=== PATIENT | male | born 1965 | race Caucasian/White ===

== ENCOUNTER 2024-03-26 12:20 | Inpatient (IN) | payer BC, SELFPAY ==
[2024-03-26] VITALS (10 sets, daily range): BP systolic 138–159; BP diastolic 84–109
[2024-03-26 11:17] LABS: % Eosinophils 1.8 % (0-6); % Immature Granulocytes 0.4 % (0-0.5); % Lymphocytes 34.9 % (20.5-51.1); % Monocytes 10.6 % (1.7-9.3); % Neutrophils 51.3 % (42.2-75.2); Absolute Basophils 0.1 10^3/uL (0-0.2); Absolute Eosinophils 0.1 10^3/uL (0-0.7); Absolute Lymphocytes 2.4 10^3/uL (1.2-3.4); Absolute Monocytes 0.7 10^3/uL (0.1-0.6); Absolute Neutrophils 3.5 10^3/uL (1.4-6.5); Hematocrit 43.3 % (39.0-52.0); Hemoglobin 15.5 g/dL (13.0-18.0); Mean Corp Hgb Conc. 35.8 g/dL (33.0-37.0); Mean Corpuscular Hgb 30.7 pg (27.0-31.0); Mean Corpuscular Volume 85.7 fL (80.0-94.0); Mean Platelet Volume 10.1 fL (7.4-10.4); Nucleated Red Blood Cells % 0 % (-); Platelet Count 217 10^3/uL (130-400); Red Blood Cell Count 5.05 10^6/uL (4.70-6.10); Red Cell Dist. Width 12.2 % (11.5-14.5); White Blood Cell Count 6.8 10^3/uL (4.8-10.8)
--- NOTE | 2024-03-26 11:20 | ED.GENMED ---
History of Present Illness
General
Chief Complaint: Chest Pain
Time Seen by Provider: 03/26/24 11:17
History of Present Illness
History of Present Illness:
Patient is a 58-year-old male with history of hypertension presenting to the emergency department with chest pain. Patient states that he was running outside when shortly after he started he developed midsternal chest pain. He stopped running. He
is still having midsternal chest pain that is a 3 out of 10. He did get slightly nauseous with it however that has since subsided. No diaphoresis. The pain does not radiate to his back. No leg swelling hemoptysis or recent travel or history of
blood clots. He does have family history of MIs. He has never seen a pick up operator before. Never had a stress test. Denies smoking. No history of high cholesterol or diabetes. Has never had pain like this before.
Phy Exam
Physical Exam
Physical Exam:
GENERAL: in no acute distress
HEENT: normocephalic, extraocular movements intact, moist oral mucosa
NECK: normal inspection
RESPIRATORY: no respiratory distress, clear to auscultation bilaterally
CARDIOVASCULAR: regular rate and rhythm
ABDOMEN/: soft, non-distended, non-tender to palpation, no rebound or guarding
EXTREMITIES: non-tender, no edema/swelling
NEUROLOGIC: awake and alert, moves all extremities
SKIN: warm
Scores
Heart Score for Chest Pain Patients
STEMI patient?: Yes
Course
Orders/Labs/Results
Orders:
Orders
03/26/24 10:57
ECG [Electrocardiogram (*1)] Urgent
Reason for Study: Chest Pain
EKG- Treatment ONCE
03/26/24 11:03
Cardiac Monitoring- Treatment ONCE
IV Insert/Care/Rem.- Treatment PRN
O2 Therapy [RESP] Urgent
Titrate/Wean O2 to maintain O2 sat greater than (%): 90
Special Instructions: Maintain sats >/=90%
Pulse Ox/spot Check [RESP] Urgent
Quantity: 1
Special Instructions: ON ROOM AIR
03/26/24 11:08
Complete Blood Count/With Diff Urgent
Comprehensive Metabolic Panel Urgent
Troponin I Urgent
03/26/24 11:12
Ticagrelor [Brilinta] 180 mg .ROUTE .STK-MED ONE
03/26/24 11:16
PTT Urgent
Abnormal Lab Results
03/26/24
11:08
Absolute Monos (auto) 0.7 H 10^3/uL
(0.1-0.6)
Monocytes % 10.6 H %
(1.7-9.3)
03/26/24 11:08
Vital Signs
Initial and Last Documented VS:
Initial Vital Signs
Temp Pulse Resp BP Pulse Ox
97.6 F 62 18 156/99 99
03/26/24 11:01 03/26/24 11:01 03/26/24 11:01 03/26/24 11:01 03/26/24 11:01
Last Documented Vital Signs
Temp Pulse Resp BP Pulse Ox
97.6 F 62 18 156/99 99
03/26/24 11:01 03/26/24 11:01 03/26/24 11:01 03/26/24 11:01 03/26/24 11:01
MDM/Problems Addressed
Differential Diagnosis Includes:
58-year-old male with history of hypertension presenting to the emergency department with chest pain that started while he was running. Story is convincing for ACS. Consider other causes such as dissection or PE though less likely. His EKG from
triage per my interpretation does have ST elevations in the anterior lead with some subtle depressions inferiorly. STEMI alert was called. I did discuss the case with interventional cardiology who evaluated patient at bedside. He will be taken up
to the [facility]. Patient was given aspirin Brilinta and heparin. He was transferred up in stable condition.
*Critical Care Note
Total Time (30-74mins, 75-104mins- exclusive of procedures): 20
comment:
Critical care statement: A total of 20 minutes of critical care time was provided for this patient. This includes management of unstable vital signs, evaluation of the patient at bedside, reviewing the patient's pertinent medical records, ordering
and reviewing studies, arranging urgent treatment with development of a management plan, evaluating patient's response to treatment, frequent reassessment, and discussion with consultants. This time was separate from time utilized to perform the
aforementioned documented procedures.
ED Attending Note
-
Portions of this chart may have been created with voice recognition software.� Occasional wrong word or��sound alike� substitutions may have occurred due to the inherent limitations of voice recognition software.
Discharge Plan
Departure
Patient Disposition: RECRUITMENT MANAGER
Date of Disposition: 03/26/24
Time of Disposition: 11:20
Presentation/result/management discussed w/ accepting MD/DO: cardiology
Discharge Problem:
ST elevation (STEMI) myocardial infarction
Interventions
Interventions:
*Risk Screen - Suicide Last Done: 03/26/24 11:01
*General Assessment Last Done: 03/26/24 11:01
*Neglect/Abuse Screening Last Done: 03/26/24 11:01
Discharge Date and Time
Print Language: BELARUSIAN
[2024-03-26 11:34] LABS: ALT (SGPT) 28 U/L (0-50); AST (SGOT) 29 U/L (17-59); Albumin 4.8 g/dl (3.5-5.0); Alkaline Phosphatase 69 U/L (38-126); Blood Urea Nitrogen 22 mg/dl (9-20); Calcium 9.8 mg/dl (8.4-10.2); Carbon Dioxide 30 mmol/L (22-30); Chloride 100 mmol/L (98-107); Glucose 138 mg/dl (70-99); Potassium 4.4 mmol/L (3.5-5.1); Sodium 140 mmol/L (135-145); Total Protein 7.6 g/dl (6.3-8.2); eGFR > 60.00
[2024-03-26 11:46] LABS: Troponin I 0.013 ng/ml
[2024-03-26 11:48] LABS: ACT-LR - POC 332 Seconds (116-155)
[2024-03-26 12:03] LABS: ACT-LR - POC 313 Seconds (116-155)
--- NOTE | 2024-03-26 12:27 | HPS.HSE ---
Family Physician
-
Family Physician: Nic Antoine
Chief Complaint
-
Chest Pain.
History of Present Illness
58 y/o male with a history of hypertension presented with 1.5 hours of substernal chest pain which developed while he was out jogging. He denies prior chest pain or shortness in breath. He presented to ER where EKG showed anterior ST
elevations. chemical laboratory tester was activated and he was brought in for emergent coronary angiography.
Coronary angiography revealed an acute occlusion of the mLAD with luminal irregularities elsewhere. He underwent ad hoc PCI of the mLAD lesion (Medtronic [place] 3.0 x 26 JEREMY, post dilated with a 3.0 NC balloon throughout and a 3.5 x 8 NCB in
the proximal margin) with relief of stenosis and confucianism of FRANCIA III flow.
Medical History
Past Medical History
Past Medical History: Reports HTN
Past Surgical History: Reports None
Social History
Unable to obtain full social history at this time due to: Acuity
Tobacco: Non-smoker
Personal:
Living: With Family
Family History
Family History: Unable to Obtain
Allergies / Home Medications
Allergies reflects when Allergies were last updated in [facility].
Home Medications with original date entered in [facility]
Allergy/Medication List:
Home Medication:
ACEI - he is not sure which.
Allergies:
NKDA
Review of Systems
-
History Source: Patient
Constitutional: Reports No Symptoms
EENT: Reports No Symptoms
Respiratory: Reports See HPI
Cardiac: Reports See HPI and Chest Pain
Abdomen/GI: Reports No Symptoms
: Reports No Symptoms
Physical Exam
Vital Signs
Vital Signs
Temp Pulse Resp BP Pulse Ox
36.5 C 62 16 156/99 95
03/26/24 12:26 03/26/24 11:01 03/26/24 12:26 03/26/24 11:01 03/26/24 12:26
Physical Exam
General: Well Developed, Well Nourished, Conversant and Good Appetite
HEENT: NormoCephalic, Anicteric, Moist mucous membranes, Atraumatic, Good Dentition, PERRLA, Hypericum Conjunctivae, No Ptosis, Nose Appears Normal and Ears Appear Normal
Respiratory: Clear and Non Labored Respirations
Cardiac: S1/S2 and Regular Rhythm
Breast: Deferred by me
GI: Soft, Non Tender, Non Distended and Normal Bowel Sounds
Rectal: Deferred by Provider
Genito-urinary: Deferred by me
Musculoskeletal: No Clubbing, No Cyanosis and No Edema
Skin: Warm and Dry
Neuro: AO x 3, No Motor Deficits, Nonfocal/grossly intact and Cranial Nerves Intact
Hematologic/Lymphatic: No Lymphadenopathy
Psych: Calm and Intact Judgment/Insight
Laboratory Results
-
03/26/24 11:08
03/26/24 11:08
Laboratory Results
APTT 26.0 Sec (23.4-35.0) 03/26/24 11:16
Total Bilirubin 1.0 mg/dl (0.2-1.3) 03/26/24 11:08
AST 29 U/L (17-59) 03/26/24 11:08
ALT 28 U/L (0-50) 03/26/24 11:08
Alkaline Phosphatase 69 U/L (38-126) 03/26/24 11:08
Troponin I 0.013 ng/ml 03/26/24 11:08
Data Reviewed
-
Medical Tests (Nuc Med, Echo, EKG etc): Image Personally Visualized and interpreted, Report Reviewed by me and Discussed with Physician
Lab Data: Labs Reviewed by me, Discussed with Physician and Discussed with Nurse
Impression/Plan
-
Impression/Plan: 58 y/o male with HTN admitted with anterior STEMI, s/p PCI to mLAD.
#CAD/STEMI
-Acute, resolved.
-S/P PCI to mLAD (Medtronic [place] 3.0 x 26 JEREMY, post dilated with a 3.0 NCB throughout, 3.5 NCB in the proximal margin) with reduction in stenosis to 0%, restoring FRANCIA III flow.
-DAPT with aspirin and ticagrelor for at least 12 months, followed by aspirin indefinitely.
-Start high dose, high potency statin. Lipid panel pending. Goal LDL < 55.
-Echocardiogram ordered.
-Referral to cardiac rehab.
-Monitor on telemetry.
-Start metoprolol succinate 25 mg daily.
#Hypertension
-Chronic.
-He is on an ACEI at home. We will resume this medication based on his blood pressure findings, need for beta blockade.
#Hyperglycemia
-Acute, noted on BMP.
-Monitor with morning labs.
-Check HbA1c to r/o occult DM.
#PPx
-SCD's and LMWH for DVT/VTE.
-No role for PPI at this time.
#Dispo
-IVU status.
-Full code.
--- NOTE | 2024-03-26 12:38 | ITS.CL.ANGIO ---
Telecommunications Manager - Angioplasty
Angioplasty
Procedure Report:
CARDIAC CATHETERIZATION REPORT
Date of Procedure: 03/26/2024
Referring: [facility] emergency room.
INDICATION: Anterior ST elevation myocardial infarction.
PROCEDURE:
1. Left heart catheterization
2. Coronary angiography.
3. Successful IVUS guided PCI of the mid LAD.
A total of 25 minutes of procedural/moderate sedation was utilized. An independent medical claims specialist was present to assist with and help manage the patient's level of consciousness and physiologic status.
ACCESS:
1. 6 Chinese right radial artery using a modified Seldinger technique.
CATHETERS:
1. 5 Chinese JR4.
2. 5 Chinese JL 3.5.
3. 6 Chinese EBU 3.5 guiding catheter.
HEMODYNAMIC DATA
Weight (kg): 98.9
AO (s/d/x, mmHg): 151/95/120
LV (s/x mmHg): 151/14 (A wave to 23)
LEFT VENTRICULOGRAPHY: Not performed.
CORONARY ANGIOGRAPHY
Dominance: Right.
Left Main: Normal size, bifurcating vessel. There is no coronary artery disease.
LAD: Large size vessel giving rise to 1 significant diagonal before coursing towards the apex. The vessel is acutely occluded in its midsection, immediately distal to the ostium of D1. There is a discrete, 30% lesion in the proximal margin of
the distal LAD. There is diffuse, severe disease in the apex that is too small for intervention.
Ramus: Congenitally absent.
Circumflex: Large size, nondominant vessel that is essentially a single large obtuse marginal. There are luminal irregularities.
RCA: Normal size, dominant vessel with a large posterolateral arcade. There is a 20% lesion in the ostium of the RPDA.
INTERVENTION(S)
1. Successful IVUS guided PCI of the mid LAD occlusion (Medtronic [place] 3.0 x 26 JEREMY, postdilated with a 3.0 NC balloon throughout and a 3.5 NC balloon in the proximal margin) with reduction in stenosis to 0%, restoring FRANCIA-3 flow.
Narrative:
The decision was made to proceed with percutaneous coronary intervention. The diagnostic catheter was removed over a wire and a 6Fr EBU 3.5 guiding catheter was advanced to the aortic root and seated in the left main coronary artery. Additional
heparin was given and a Power Turn Flex wire was advanced distal LAD. The 100% mid LAD lesion was predilated with a 2.0 x 12 semi-compliant balloon to 12 nitish. The semi-compliant balloon was removed and a Medtronic [place] 3.0 x 26 drug-eluting
stent was advanced. The stent was deployed at 12 atmospheres.
The decision was made to perform intracoronary imaging. An IVUS catheter was advanced through the guiding catheter and into the ostium of the artery. Ring down was performed once the imaging crystal was no longer inside of the guiding catheter. The
IVUS catheter was advanced into the mid LAD, beyond the stented segment. Intravascular ultrasound was performed in a retrograde fashion using a slow pullback. Intracoronary imaging demonstrated good stent apposition throughout the entire distal and
mid stent with mild mall apposition of the proximal margin due to vessel size. There was mild underexpansion of the distal stent margin.
The IVUS catheter was removed. A 3.0 x 20 noncompliant balloon was advanced into the stent and the stent was postdilated to 15 atmospheres. The 3.0 x 20 NC balloon was withdrawn and a 3.5 x 8 NC balloon was advanced. The proximal margin was
postdilated to 16 nitish. The noncompliant balloon was withdrawn. Angiography was performed in orthogonal views, confirming good stent expansion and an excellent angiographic result. The coronary wire was withdrawn and the guide was disengaged from
the artery. The catheter was removed over a standard J-wire.
Closure Device: Vascular band.
Radiation (mGy): 601.12
DAP (cm2.Gy): 47.3609
Fluoroscopy time (minutes): 7.5
CONCLUSIONS
1. Right dominant circulation with luminal irregularities throughout the entire coronary tree, a 20% lesion of the ostial RPDA, a 30% lesion of the proximal margin of the distal LAD and an acute occlusion of the mid LAD, status post successful IVUS
guided PCI (Medtronic [place] 3.0 x 26 JEREMY, postdilated with a 3.0 NC balloon throughout and a 3.5 x 8 NC balloon in the proximal margin) with reduction in stenosis to 0%, restoring FRANCIA-3 flow.
2. Normal filling pressures (LVEDP = 14 mmHg at 98.9 kg) with some diastolic dysfunction (A wave to 23 mmHg).
RECOMMENDATIONS:
1. Expectant management after cardiac catheterization via right radial approach.
2. Limited weight bearing on the right wrist for one week.
3. Dual antiplatelet therapy with aspirin anticoagulant for at least 12 months, followed by aspirin indefinitely.
4. Aggressive secondary prevention with high-dose, high potency statin. Goal LDL <55.
5. Guideline directed medical therapy as hemodynamics will tolerate.
6. Echocardiogram ordered and pending.
7. Referral to cardiac rehab.
Copy to: Nic Antoine M.D.
Ezekiel Kaiser DO, FACC, FACP
--- NOTE | 2024-03-26 13:27 | PTCARENOTE ---
received pt from cathead operator, ot is sr on the monitor, hr in the 60s, vss. pt offers no complaints at this time. pt denies cp. right radial band is cdi. pt educated on plan of care and pt verbalized understanding. family at bedside visiting. call bernardo
within reach.
[2024-03-26] MEDS: CRESTOR 20 MG PO (17:38)
[2024-03-26] MEDS: LOVENOX 40 MG SC (17:39)
--- NOTE | 2024-03-26 17:54 | PTCARENOTE ---
pt continues to be sr, hr in the 60s, vss. pt offers no complaints at this time. right radial band is CDI. pt educated on new medications, plan of care. verbalized understanding. pt ambulating in room and tolerating well. call bernardo within reach.
[2024-03-26] MEDS: BRILINTA 90 MG PO (20:20)
--- NOTE | 2024-03-27 03:05 | PTCARENOTE ---
Assumed call of the pt @ 1900. Pt AAOx3 SR with 1st degree AVB on the monitor vss denies cp. trop peaked @ 59.100 Pt independent in the room. Call bernardo within reach.
[2024-03-27 04:01] VITALS: BP 150/93
[2024-03-27 04:37] LABS: Hematocrit 40.5 % (39.0-52.0); Hemoglobin 14.9 g/dL (13.0-18.0); Mean Corp Hgb Conc. 36.8 g/dL (33.0-37.0); Mean Corpuscular Hgb 31.4 pg (27.0-31.0); Mean Corpuscular Volume 85.3 fL (80.0-94.0); Mean Platelet Volume 10.6 fL (7.4-10.4); Platelet Count 195 10^3/uL (130-400); Red Blood Cell Count 4.75 10^6/uL (4.70-6.10); White Blood Cell Count 9.5 10^3/uL (4.8-10.8)
[2024-03-27 05:05] LABS: Blood Urea Nitrogen 16 mg/dl (9-20); Carbon Dioxide 24 mmol/L (22-30); Chloride 101 mmol/L (98-107); Glucose 126 mg/dl (70-99); Potassium 4.1 mmol/L (3.5-5.1); Sodium 135 mmol/L (135-145); eGFR > 60.00
[2024-03-27 07:34] VITALS: BP 118/83
[2024-03-27] MEDS: LOW STRENGTH ASPIRIN 81 MG PO (07:53)
[2024-03-27] MEDS: BRILINTA 90 MG PO ×2 (07:53→19:58)
[2024-03-27] MEDS: FLUSH (NSS) 1 FLUSH IV (07:54)
--- NOTE | 2024-03-27 08:47 | W.PN.CD ---
Today's Communication / Plan
-
Continue to monitor on telemetry
Start low-dose beta-annmarie
Low-dose lisinopril
Check hemoglobin A1c
Patient was on tadalafil as an outpatient which will be discontinued.
Impression / Plan
-
58-year-old male with a history of hypertension who presented with 1.5 hours of chest discomfort while he was out jogging patient presented with anterior ST elevation myocardial infarction. Emergent catheterization by Dr. Ibarra revealed occlusion
of the mid LAD. Patient with successful stenting of LAD on 03/26/2024 with 3.0 x 26 JEREMY. Left circumflex with luminal irregularities RCA 20% RPDA
Anterior ST PA
-Stenting of mid LAD 03/26/2024
-Peak troponin 59.9
-DAPT with aspirin and Brilinta
-Statin
-Metoprolol start low-dose
-DUDLEY inhibitor
-Echocardiogram
.
Hyperglycemia. Noted on admit. Check A1c
Physical Exam
Vital Signs/Labs
Vital Signs
Temp Pulse Resp BP Pulse Ox
97.7 F 74 20 118/83 97
03/27/24 07:33 03/27/24 07:34 03/27/24 07:33 03/27/24 07:34 03/27/24 07:33
03/27/24 04:17
03/27/24 04:17
APTT 26.0 Sec (23.4-35.0) 03/26/24 11:16
LAB Results
03/26/24 03/26/24 03/26/24
11:08 13:15 18:33
Troponin I 0.013 19.000 H* D 59.900 H* D
03/27/24 03/27/24 03/27/24
00:08 06:30 12:30
Troponin I 50.100 H* Cancelled Cancelled
Physical Exam
Constitutional: No acute distress
Cardiovascular: Rhythm & rate is regular
Respiratory: Respiratory effort normal
GI: Soft
Neuro/Psych: Alert
Other: Other (Radial cath site fine)
Data Reviewed
-
Date of Service: March 27, 2024
--- NOTE | 2024-03-27 10:31 | PTCARENOTE ---
The patient is aaox3, vss, NSR with a 1st degree AVB noted on the monitor. Right wrist dressing is c/d/i. A positive right pedal pulse is noted. He has no complaint of pain, sob, or discomfort. His gait is steady and he is ambulatory in his room.
[2024-03-27 11:57] VITALS: BP 119/86
[2024-03-27 13:51] VITALS: BMI 29.2
[2024-03-27 15:06] VITALS: BP 131/77
[2024-03-27] MEDS: ZESTRIL 2.5 MG PO (16:04)
[2024-03-27] MEDS: LOVENOX 40 MG SC (17:26)
[2024-03-27] MEDS: CRESTOR 20 MG PO (17:26)
[2024-03-27 19:32] VITALS: BP 119/75
[2024-03-27] MEDS: LOPRESSOR 12.5 MG PO (19:57)
[2024-03-27 22:45] VITALS: BP 114/64
--- NOTE | 2024-03-28 00:01 | PTCARENOTE ---
Assumed care of the pt @ 1900 Pt AAOx3 SR with 1st degree HB on the monitor vss. Denies pain or sob . Independent in the room call bernardo within reach.
[2024-03-28 04:22] VITALS: BP 111/77
[2024-03-28 04:52] LABS: % Basophils 0.3 % (0-2); % Eosinophils 1.6 % (0-6); % Immature Granulocytes 0.4 % (0-0.5); % Lymphocytes 22.1 % (20.5-51.1); % Monocytes 9.5 % (1.7-9.3); % Neutrophils 66.1 % (42.2-75.2); Absolute Eosinophils 0.1 10^3/uL (0-0.7); Absolute Lymphocytes 1.6 10^3/uL (1.2-3.4); Absolute Monocytes 0.7 10^3/uL (0.1-0.6); Absolute Neutrophils 4.7 10^3/uL (1.4-6.5); Hematocrit 42.1 % (39.0-52.0); Hemoglobin 15.2 g/dL (13.0-18.0); Mean Corp Hgb Conc. 36.1 g/dL (33.0-37.0); Mean Corpuscular Volume 85.9 fL (80.0-94.0); Mean Platelet Volume 10.2 fL (7.4-10.4); Nucleated Red Blood Cells % 0 % (-); Platelet Count 184 10^3/uL (130-400); Red Cell Dist. Width 12.2 % (11.5-14.5); White Blood Cell Count 7.1 10^3/uL (4.8-10.8)
[2024-03-28 05:19] LABS: Albumin 4.4 g/dl (3.5-5.0); Blood Urea Nitrogen 17 mg/dl (9-20); Calcium 9.2 mg/dl (8.4-10.2); Carbon Dioxide 23 mmol/L (22-30); Chloride 102 mmol/L (98-107); Estimated Creatinine Clearance 89 ml/min; Glucose 119 mg/dl (70-99); Phosphorus 3.3 mg/dl (2.5-4.5); Potassium 4.1 mmol/L (3.5-5.1); Sodium 136 mmol/L (135-145); eGFR > 60.00
[2024-03-28] MEDS: ZESTRIL 2.5 MG PO (08:25)
[2024-03-28] MEDS: LOPRESSOR 12.5 MG PO (08:25)
[2024-03-28] MEDS: BRILINTA 90 MG PO (08:25)
[2024-03-28] MEDS: LOW STRENGTH ASPIRIN 81 MG PO (08:25)
[2024-03-28 08:28] VITALS: BP 120/73
[2024-03-28 09:07] LABS: Glycohemoglobin (HgbA1c) 5.4 % (4.0-5.6)
--- NOTE | 2024-03-28 10:14 | W.PN.CD ---
Today's Communication / Plan
-
echo today
continue ASA 81mg daily, brilinta 90mg bid
Toprol XL 25mg daily, lisinopril 5mg daily
crestor 20mg daily
discharge planning post echo
Impression / Plan
-
58-year-old male with a history of hypertension who presented with 1.5 hours of chest discomfort while he was out jogging patient presented with anterior ST elevation myocardial infarction. Emergent catheterization by Dr. Ibarra revealed occlusion
of the mid LAD. Patient with successful stenting of LAD on 03/26/2024 with 3.0 x 26 JEREMY. Left circumflex with luminal irregularities RCA 20% RPDA
Anterior ST CT
-Stenting of mid LAD 03/26/2024
-Peak troponin 59.9
-DAPT with aspirin and Brilinta
-crestor 20mg daily
-Toprol XL 25mg daily, lisinopril 5mg daily
-Echocardiogram today
.
Hyperglycemia. Noted on admit. A1c normal.
HTN
-stable on above regimen
Physical Exam
Vital Signs/Labs
Vital Signs
Temp Pulse Resp BP Pulse Ox
98.2 F 71 20 120/73 98
03/27/24 23:00 03/28/24 08:28 03/27/24 23:00 03/28/24 08:28 03/27/24 23:00
03/27/24 03/28/24 03/29/24
06:59 06:59 06:59
Actual Weight 97.6 kg
03/28/24 04:34
03/28/24 04:34
APTT 26.0 Sec (23.4-35.0) 03/26/24 11:16
LAB Results
03/26/24 03/26/24 03/26/24
11:08 13:15 18:33
Troponin I 0.013 19.000 H* D 59.900 H* D
03/27/24 03/27/24 03/27/24
00:08 06:30 12:30
Troponin I 50.100 H* Cancelled Cancelled
Physical Exam
Constitutional: No acute distress and Comfortable
EENT: Moist mucous membranes
Cardiovascular: Rhythm & rate is regular, Pedal edema is absent, JVD pressure is normal and Systolic murmur absent
Respiratory: Respiratory effort normal and Lungs clear to auscul.
Neuro/Psych: AO x 3
Data Reviewed
-
Date of Service: March 28, 2024
EKG: Other (Tele: SR 60s, no arrhythmia)
Labs: Labs Reviewed by me
--- NOTE | 2024-03-28 10:25 | CM ---
Addendum entered by Bren Loco 03/28/24 12:26:
Reviewed co-pay for Brilinta with him. He is agreeable to the $5.00 a month co-pay.
Addendum entered by Bren Loco 03/28/24 10:41:
Telephone call to [facility] to check if Brilinta 90 mg po bid is in stock [facility] states they have it in stock.
Original Note:
Reviewed chart. Met with Mr. Avery to review discharge plans. He states prior to admission he resides with his spouse in a two story home with one step to enter. He states he has a full flight of steps to get to bedroom/full bathroom. He states
he has a powder room on the first floor. He states prior to admiission he was independent with ambulation and adls. He states he does not have any DME in the home. He states he has a prescription plan with [facility] and uses [facility].
Telephone call to [facility],([phone]) to check on co-pay for Brilinta 90 mg po bid. His co-pay for a thirty day supply is $30.00 a and for a ninety day supply the co-pay is $60.00. He has commercial insurance so he can use the $5.00 co-pay card
Placed the co-pay card in his red discharge folder. Medical work-up in progress. The discharge plan is to return home with his spouse when medically stable.
[2024-03-28 10:48] LABS: HDL Cholesterol 35 mg/dl; LDL Cholesterol, Calculated 144 mg/dl; Total Cholesterol 223 mg/dl (50-199); Triglyceride 220 mg/dl (10-149); Very Low Density Lipoprotein 44 mg/dl (0-30)
[2024-03-28] MEDS: TOPROL XL 25 MG PO (10:58)
[2024-03-28 10:59] VITALS: BP 119/77
--- NOTE | 2024-03-28 11:13 | PTCARENOTE ---
Pt ambulating in room and prajapati, rtuh well.
--- NOTE | 2024-03-28 11:41 | W.DS.TRANS ---
DC Summary - [facility] Administrator
-
Discharge Instructions:
Discharge Diagnosis/Procedures Anterior STEMI, s/p angioplasty and stent to
Left Anterior Descending artery
Diet Low Cholesterol
Activity No strenuous activity
Additional Activity For 1 week
Driving Restrictions No driving for 24 hours
Other Services Cardiac Rehab
Instructions:
Stand-Alone Forms: DC Instructions- Cath/EP Lab
Return to Work
Changes to Home Medications: Yes
Discharge Medications:
DC Medications w/original date entered in [facility]
multivitamin 1 tab PO DAILY Supplement 03/26/24
aspirin 81 mg chewable tablet 81 mg PO DAILY #0 tabs 03/28/24
lisinopril 5 mg tablet 5 mg PO DAILY #90 tabs 03/28/24
metoprolol succinate 25 mg tablet,extended release 24 hr 25 mg PO DAILY #90 tabs 03/28/24
nitroglycerin 0.4 mg sublingual tablet 0.4 mg sublingual [id number] PRN chest pain #25 tabs 03/28/24
rosuvastatin 20 mg tablet 20 mg PO QPM #90 tabs 03/28/24
tadalafil 20 mg tablet 20 mg PO DAILYPRN PRN ED #0 tabs 03/28/24
ticagrelor 90 mg tablet (Brilinta) 90 mg PO BID #180 tabs 03/28/24
Home Medication Changes
NEW: aspirin, lisinopril, metoprolol succinate, nitrostat, rosuvastatin, ticagrelor
STOP: losartan/HCT
Pending Results: No
[2024-03-28 12:08] VITALS: BP 114/76
== END 2024-03-28 13:37 | disposition home or self-care (01) | DRG 322 ==
LOC: IVU 12:20
PROVIDERS: Internal Medicine Cardiovascular Disease; Student in an Organized Health Care Education/Training Program; ADMITTING PHYSICIAN Internal Medicine Cardiovascular Disease; EMERGENCY PHYSICIAN Student in an Organized Health Care Education/Training Program; FAMILY PHYSICIAN Family Medicine
PROC: B241ZZ3 Ultrasonography of Multiple Coronary Arteries, Intravascular (ICD-10-PCS; 2024-03-26)
PROC: B2111ZZ Fluoroscopy of Multiple Coronary Arteries using Low Osmolar Contrast (ICD-10-PCS; 2024-03-26)
PROC: 027034Z Dilation of Coronary Artery, One Artery with Drug-eluting Intraluminal Device, Percutaneous Approach (ICD-10-PCS; 2024-03-26)
PROC: 4A023N7 Measurement of Cardiac Sampling and Pressure, Left Heart, Percutaneous Approach (ICD-10-PCS; 2024-03-26)
DX: I21.09 ST elevation (STEMI) myocardial infarction involving other coronary artery of anterior wall (principal); Z79.82 Long term (current) use of aspirin; I10 Essential (primary) hypertension; E78.5 Hyperlipidemia, unspecified; I25.10 Atherosclerotic heart disease of native coronary artery without angina pectoris; I34.81 Nonrheumatic mitral (valve) annulus calcification
CPT/HCPCS: 80048; 80053; 80061; 80069; 83036; 84484; 85025; 85027; 85730; 92978; 93005; 93306; 93454; 99152; 99153; 99285; C1725; C1753; C1874; C1894; C9606; Q9967

== ENCOUNTER 2024-04-01 17:32 | Emergency (ER) | payer BC, SELFPAY ==
[2024-04-01 17:35] VITALS: BP 153/90
--- NOTE | 2024-04-01 19:23 | ED.GENMED ---
History of Present Illness
General
Chief Complaint: Skin Problem
Time Seen by Provider: 04/01/24 19:12
History of Present Illness
History of Present Illness:
58-year-old male with history of CAD and recent STEMI presents to the emergency department for evaluation of pain and swelling to the left dorsal hand, reportedly at the site of IVs during his hospital stay. Moderate bruising to the hand is noted.
He has been compliant with his aspirin and Brilinta since discharge. No proximal arm swelling or pain
Review of Systems
Review of Systems
Allergies reviewed?: Yes
All Other Systems: ROS reviewed and negative except as documented in HPI and ROS
Phy Exam
Physical Exam
Physical Exam:
GEN: Well appearing, NAD, WDWN
HEENT: Oral mucosa moist, no scleral icterus
Cardiac: Regular rate
Lung: No respiratory distress, no tachypnea
MSK: Nodular swelling to a dorsal hand pain associated with moderate ecchymosis, no lymphangitis or erythema
Skin: Good color, no pallor or jaundice, no rashes
Neuro: AO x3, moves all extremities freely
Psych: Calm, cooperative
Course
Vital Signs
Initial and Last Documented VS:
Initial Vital Signs
Temp Pulse Resp BP Pulse Ox
97.8 F 76 18 153/90 97
04/01/24 17:35 04/01/24 17:35 04/01/24 17:35 04/01/24 17:35 04/01/24 17:35
Last Documented Vital Signs
Temp Pulse Resp BP Pulse Ox
97.8 F 76 18 153/90 97
04/01/24 17:35 04/01/24 17:35 04/01/24 17:35 04/01/24 17:35 04/01/24 17:35
MDM/Problems Addressed
MDM/Problems Addressed:
Exam consistent with superficial thrombophlebitis of the distal extremity vein. He is already on antiplatelets, recommend warm compresses
*Critical Care Note
Total Time (30-74mins, 75-104mins- exclusive of procedures): Not Applicable
ED Attending Note
-
Portions of this chart may have been created with voice recognition software.� Occasional wrong word or��sound alike� substitutions may have occurred due to the inherent limitations of voice recognition software.
Discharge Plan
Departure
Patient Disposition: Home (Routine Discharge)
Date of Disposition: 04/01/24
Time of Disposition: 19:24
Patient with high blood pressure during this ER visit?: No
Discharge Problem:
Superficial thrombophlebitis
Instructions: Phlebitis (DC)
Prescriptions:
No Action
multivitamin Tablet
1 tab PO DAILY
Brilinta 90 mg Tablet
90 mg PO BID Qty: 180 3RF
aspirin 81 mg Tablet,Chewable
81 mg PO DAILY Qty: 0 0RF
rosuvastatin 20 mg Tablet
20 mg PO QPM Qty: 90 3RF
metoprolol succinate 25 mg Tablet Extended Release 24 Hr
25 mg PO DAILY Qty: 90 3RF
lisinopril 5 mg Tablet
5 mg PO DAILY Qty: 90 3RF
nitroglycerin 0.4 mg tablet, sublingual
0.4 mg sublingual [id number] PRN (Reason: chest pain) Qty: 25 2RF
Rx Instructions:
DO NOT TAKE WITHIN 24hrs of TADALAFIL
tadalafil 20 mg Tablet
20 mg PO DAILYPRN PRN (Reason: ED) Qty: 0 0RF
Rx Instructions:
DO NOT TAKE WITHIN 24hrs of NITROGLYCERIN
Referrals:
Nic Antoine MD [Family Provider] -
Interventions
Interventions:
*Risk Screen - Suicide Last Done: 04/01/24 17:35
*General Assessment Last Done: 04/01/24 17:35
*Neglect/Abuse Screening Last Done: 04/01/24 17:35
*ED COVID-19 Vaccine History Last Done: 04/01/24 19:30
*Nursing Disposition Last Done: 04/01/24 20:14
ED-Skin Assessment Last Done: 04/01/24 19:30
Discharge Date and Time
Discharge Date/Time: 04/01/24 20:15
Print Language: NEPALI
== END 2024-04-01 20:15 | disposition home or self-care (01) ==
LOC: EMR 17:32
PROVIDERS: EMERGENCY PHYSICIAN Emergency Medicine; FAMILY PHYSICIAN Family Medicine
DX: I80.9 Phlebitis and thrombophlebitis of unspecified site (principal); R22.32 Localized swelling, mass and lump, left upper limb; I25.10 Atherosclerotic heart disease of native coronary artery without angina pectoris; I25.2 Old myocardial infarction; Z79.02 Long term (current) use of antithrombotics/antiplatelets; Z79.82 Long term (current) use of aspirin
CPT/HCPCS: 99282

== ENCOUNTER 2024-05-06 08:42 | Outpatient (RCR) | payer BC, SELFPAY | END 2024-05-06 23:59 | disposition home or self-care (01) | LOC: CRHB 08:42 | PROVIDERS: ATTENDING PHYSICIAN Internal Medicine Cardiovascular Disease | DX: I21.01 ST elevation (STEMI) myocardial infarction involving left main coronary artery (principal); Z95.5 Presence of coronary angioplasty implant and graft | CPT/HCPCS: 93797; 93798 ==

== ENCOUNTER 2024-06-06 08:40 | Outpatient (RCR) | payer BC, SELFPAY | END 2024-06-06 23:59 | disposition home or self-care (01) | LOC: CRHB 08:40 | PROVIDERS: ATTENDING PHYSICIAN Internal Medicine Cardiovascular Disease | DX: I21.01 ST elevation (STEMI) myocardial infarction involving left main coronary artery (principal); I25.2 Old myocardial infarction (principal); I25.10 Atherosclerotic heart disease of native coronary artery without angina pectoris (principal); Z95.5 Presence of coronary angioplasty implant and graft | CPT/HCPCS: 93797; 93798; G0422 ==

== ENCOUNTER 2024-06-13 08:30 | Outpatient (RCR) | payer BC, SELFPAY | END 2024-06-13 23:59 | disposition home or self-care (01) | LOC: CRHB 08:30 | PROVIDERS: ATTENDING PHYSICIAN Internal Medicine Cardiovascular Disease; FAMILY PHYSICIAN Family Medicine | DX: I21.01 ST elevation (STEMI) myocardial infarction involving left main coronary artery (principal); Z95.5 Presence of coronary angioplasty implant and graft; I25.2 Old myocardial infarction | CPT/HCPCS: 93797; 93798 ==